=== PATIENT | female | born 1965 | race African-American/Black ===

== ENCOUNTER 2018-11-21 17:42 | Emergency (ER) | payer OTHER, MEDICAID ==
[~2018-11-21] VITALS: Ht 170.2 cm; Wt 106.6 kg
[2018-11-21 17:51] VITALS: BP 159/85
[2018-11-21 18:30] LABS: Urine Bacteria FEW /hpf (None Seen); Urine Blood 1+ /uL (Negative); Urine Mucus FEW (None Seen); Urine WBC 2 /hpf (0 - 5)
[2018-11-21 18:36] LABS: Eosinophils # (auto) 0.2 uL; Hemoglobin 12.8 g/dL (12.2-16.2); Mean Corpuscular Hemoglobin 25.1 pg (28.0-32.0); Monocytes # (auto) 0.5 uL; Red Cell Distribution Width 15.5 % (11.8-14.3); White Blood Cell 8.9 10^3/uL (4.4-10.8)
[2018-11-21 18:37] LABS: Basophils # (auto) 0.1 uL; Basophils % (auto) 0.9 % (0.0-2.0); Eosinophils % (auto) 1.7 % (0.0-7.0); Lymphocytes # (auto) 2.4 uL; Lymphocytes % (auto) 27.1 % (10.0-50.0); Mean Corpuscular Hgb Conc. 31.2 g/dL (32.0-36.0); Mean Corpuscular Volume 80.3 fL (80.0-100.0); Monocytes % (auto) 5.4 % (0.0-12.0); Neutrophils # (auto) 5.8 uL; Neutrophils % (auto) 64.9 % (37.0-80.0); Nucleated Red Blood Cells % 0.1 %; Platelet Count (auto) 318 10^3/uL (140-450)
[2018-11-21 18:49] LABS: Alanine Aminotransferase 22 U/L (13-56); Albumin 3.5 g/dL (3.4-5.0); Anion Gap 9 (5-15); Aspartate Aminotransferase 11 U/L (15-37); Blood Urea Nitrogen 9 mg/dL (7-18); Calcium 8.7 mg/dL (8.5-10.1); Carbon Dioxide 27 mmol/L (21-32); Chloride 106 mmol/L (98-107); GFR African American 95 mL/min; GFR Non-African American 78 mL/min; Glucose 97 mg/dL (74-106); Potassium 4.2 mmol/L (3.5-5.1); Sodium 142 mmol/L (136-145)
[2018-11-21 18:54] LABS: Alkaline Phosphatase 104 U/L (45-117); Bilirubin, Total 0.3 mg/dL (0.2-1.0); Total Protein 8.4 g/dL (6.4-8.2)
== END 2018-11-21 20:02 | disposition home or self-care (01) ==
LOC: ER 17:43
DX: F41.9 Anxiety disorder, unspecified (principal); I10 Essential (primary) hypertension; D32.9 Benign neoplasm of meninges, unspecified; M79.602 Pain in left arm; J45.909 Unspecified asthma, uncomplicated; E78.5 Hyperlipidemia, unspecified; Z90.710 Acquired absence of both cervix and uterus; Z88.8 Allergy status to other drugs, medicaments and biological substances; Z88.0 Allergy status to penicillin
CPT/HCPCS: 36415; 70450; 71046; 80053; 81001; 84484; 85025; 93005